=== PATIENT | female | born 1980 | race Two or more races ===

== ENCOUNTER 2023-05-31 05:44 | Emergency (ER) | payer OTHER ==
[~2023-05-31] VITALS: Ht 167.6 cm; Wt 79.4 kg
[2023-05-31] MEDS ORDERED: LORAZEPAM 1 MG TABLET ONE (06:26)
[2023-05-31] MEDS ORDERED: LORAZEPAM 1 MG TABLET PO ONE (06:30)
[2023-05-31 08:53] VITALS: BP 142/90; TEMP 98.5; O2SAT 100
== END 2023-05-31 08:54 | disposition home or self-care (01) ==
LOC: ER 05:46
DX: F41.9 Anxiety disorder, unspecified (principal); J45.909 Unspecified asthma, uncomplicated; Z60.2 Problems related to living alone; Z88.0 Allergy status to penicillin
CPT/HCPCS: 71045-TC